=== PATIENT | female | born 2000 | race Caucasian/White ===

== ENCOUNTER 2022-12-10 14:21 | Outpatient (CLI) | payer OTHER ==
[2022-12-10 14:31] LABS: HCT - HEMATOCRIT 40.3 % (37.0-47.0); HGB - HEMOGLOBIN 13.3 g/dL (12.0-16.0); MEAN CORPUSCULAR HEMOGLOBIN 29.6 pg (27.0-31.0); MEAN CORPUSCULAR VOLUME 89.6 fL (81.0-99.0); RED BLOOD COUNT 4.5 10^6/uL (4.20-5.40); WHITE BLOOD COUNT 8.6 x10^3/uL (4.8-10.8)
[2022-12-10 15:01] LABS: THYROID STIMULATING HORMONE 3.92 uIU/mL (0.34-5.60)
== END 2022-12-10 14:22 | disposition home or self-care (01) ==
LOC: LAB 14:21
PROVIDERS: ATTEND Nurse Practitioner Obstetrics & Gynecology
DX: O99.280 Endocrine, nutritional and metabolic diseases complicating pregnancy, unspecified trimester (principal); O99.019 Anemia complicating pregnancy, unspecified trimester
CPT/HCPCS: 36415; 84439; 84443; 85027